=== PATIENT | female | born 1960 | race Caucasian/White ===

== ENCOUNTER → 2016-07-28 | Outpatient (CLI) | payer OTHER ==
--- NOTE | 2016-07-28 16:01 | RAD ---
Bilateral lower extremity venous ultrasound, 07/28/2016 History: Bilateral leg swelling Duplex evaluation of the deep veins in the lower extremities was performed including grayscale, color-flow and spectral Doppler analysis. The femoral and popliteal veins demonstrate normal compressibility and normal responses to distal augmentation maneuvers. Color imaging of those vessels shows no evidence of intraluminal clot. The visualized deep veins in both calves are patent. IMPRESSION: There is no sonographic evidence of deep vein thrombosis in either lower extremity.
== END | disposition home or self-care (01) ==
LOC: US 14:15
PROVIDERS: ATTEND Physician Assistant Medical
DX: M79.89 Other specified soft tissue disorders (principal)
CPT/HCPCS: 93970

== ENCOUNTER → 2016-09-07 | Outpatient (CLI) | payer OTHER ==
--- NOTE | 2016-09-07 16:59 | CARD ---
APPROVED REPORT EXAM: Two-dimensional and M-mode echocardiogram with Doppler and color Doppler. Other Information Quality : Average Rhythm : NSR INDICATION Murmur 2D DIMENSIONS RVDd3.0 (2.9-3.5cm)Left Atrium(2D)3.7 (1.6-4.0cm) IVSd1.4 (0.7-1.1cm)Aortic Root(2D)3.0 (2.0-3.7cm) LVDd5.2 (3.9-5.9cm)LVOT Diameter2.3 (1.8-2.4cm) PWd1.4 (0.7-1.1cm)LVDs3.6 (2.5-4.0cm) FS (%) 30.8 %SV75.3 ml LVEF(%)58.0 (>50%) Aortic Valve AoV Peak Neno.189.6cm/sAoV VTI47.7cm AO Peak GR.14.4mmHgLVOT Peak Neno.143.6cm/s LVOT VTI 30.72cmAO Mean GR.9mmHg SMITA (VMAX)3.94nk5OVK (VTI)2.57cm2 Mitral Valve MV E Iotpwvca285.5cm/sMV DECEL TRUQ741on MV A Qfffqqxz17.9cm/sE/A Ratio1.6 MV A [id number] Tricuspid Valve TR P. Kwxvydmk735sw/sRAP DFQYJOIZ3lqBq TR Peak Gr.58acMpFHWM52szXi LEFT VENTRICLE The left ventricle is normal size. There is mild concentric left ventricular hypertrophy. Left ventri joanna systolic function is normal. The Ejection Fraction is 55-60%. There is normal LV segmental wall m otion. The left ventricular diastolic function and filling is normal for age. There is no ventricular septal defect visualized. RIGHT VENTRICLE The right ventricle is normal size. The right ventricular systolic function is normal. ATRIA The left atrium size is normal. The right atrium size is normal. The interatrial septum is intact wit h no evidence for an atrial septal defect or patent foramen ovale as noted on 2-D or Doppler imaging. AORTIC VALVE The aortic valve is mildly calcified. The aortic valve is trileaflet. Doppler and Color Flow revealed no significant aortic regurgitation. There is no significant aortic valvular stenosis. MITRAL VALVE Mitral annular calcification is borderline. There is no mitral valve stenosis. Doppler and Color Flow revealed trace to mild mitral regurgitation. TRICUSPID VALVE The tricuspid valve is normal in structure and function. Doppler and Color Flow revealed trace tricus pid regurgitation. The PA pressure was estimated at 26 mmHg. There is no tricuspid valve stenosis. PULMONIC VALVE The pulmonic valve is not well visualized. Doppler and Color Flow revealed no pulmonic valvular regur gitation. There is no pulmonic valvular stenosis. GREAT VESSELS The aortic root is normal in size. Normal pulmonary venous flow (Doppler). The IVC is normal in size and collapses >50% with inspiration. PERICARDIAL EFFUSION There is no evidence of significant pericardial effusion. Critical Notification Critical Value: No <Conclusion> The left ventricle is normal size. Left ventricle systolic function is normal. The Ejection Fraction is 55-60%. There is mild concentric left ventricular hypertrophy. There is no significant aortic valvular stenosis. Doppler and Color Flow revealed no significant aortic regurgitation. Doppler and Color Flow revealed trace to mild mitral regurgitation. Doppler and Color Flow revealed trace tricuspid regurgitation. The PA pressure was estimated at 26 mmHg.
== END | disposition home or self-care (01) ==
LOC: ECHO 11:00
PROVIDERS: ATTEND Physician Assistant Medical
DX: I08.3 Combined rheumatic disorders of mitral, aortic and tricuspid valves (principal); I51.7 Cardiomegaly; R01.1 Cardiac murmur, unspecified
CPT/HCPCS: 93306

== ENCOUNTER → 2016-10-11 | Outpatient (CLI) | payer OTHER ==
--- NOTE | 2016-10-11 12:18 | RAD ---
Indication: Left foot pain laterally. Time of exam 12:10 PM 3 views of the left foot were obtained. The metatarsals are intact. The phalanges appear intact. The midfoot is unremarkable. Hindfoot demonstrates a large plantar calcaneal spur. No fractures are seen. Impression: No acute bony abnormality is detected.
== END | disposition home or self-care (01) ==
LOC: DXRADRC 11:57
PROVIDERS: ATTEND Nurse Practitioner Family
DX: M77.32 Calcaneal spur, left foot (principal); M79.89 Other specified soft tissue disorders; D75.82 Heparin induced thrombocytopenia (HIT)
CPT/HCPCS: 73630

== ENCOUNTER → 2017-08-30 | Outpatient (CLI) | payer OTHER ==
--- NOTE | 2017-08-30 14:18 | RAD ---
Right humerus, 2 views, 08/30/2017: HISTORY: Pain, injury No fracture or bony abnormality is detected. The soft tissues are unremarkable. Moderate degenerative change is present at the AC joint. IMPRESSION: No acute right humeral abnormality is detected. Right forearm, 2 views, 08/30/2017: No fracture is identified. The soft tissues are unremarkable. IMPRESSION: No acute abnormality is detected. Electronically signed by: Eddi Mane MD (08/30/2017 2:15 PM) [facility]
--- NOTE | 2017-08-30 14:18 | RAD ---
Right humerus, 2 views, 08/30/2017: HISTORY: Pain, injury No fracture or bony abnormality is detected. The soft tissues are unremarkable. Moderate degenerative change is present at the AC joint. IMPRESSION: No acute right humeral abnormality is detected. Right forearm, 2 views, 08/30/2017: No fracture is identified. The soft tissues are unremarkable. IMPRESSION: No acute abnormality is detected. Electronically signed by: Eddi Mane MD (08/30/2017 2:15 PM) [facility]
== END | disposition home or self-care (01) ==
LOC: DXRAD 13:23
PROVIDERS: ATTEND Nurse Practitioner Family
DX: M79.631 Pain in right forearm (principal)
CPT/HCPCS: 73060; 73090

== ENCOUNTER → 2018-04-12 | Outpatient (CLI) | payer OTHER ==
--- NOTE | 2018-04-12 15:39 | RAD ---
Cervical spine radiograph 04/12/2018 INDICATION: Cervical spine pain. No history of injury or trauma. COMPARISON: None available TECHNIQUE: AP, lateral and odontoid views of the cervical spine are provided. FINDINGS: Cervical spine is visualized from the craniocervical junction through the cervicothoracic junction. There is moderate disc height loss at C5-C6, C6-C7 and C7-T1. There is endplate sclerosis at these levels with endplate remodeling and moderate anterior marginal osteophytosis. There is no prevertebral soft tissue swelling. There is moderate multilevel facet arthropathy in the lower cervical spine. Posterior osteophytes are identified at C5-C6, C6-C7 and C7-T1 resulting in at least mild osseous spinal canal stenosis. Moderate uncovertebral joint disease is noted. Dens is intact. Lateral masses of C1 articulate appropriately with the C2 vertebral body. IMPRESSION: Moderate cervical spondylosis, as described in detail above. No acute fracture or malalignment. Electronically signed by: Kalli Washington MD (04/12/2018 3:35 PM) [id number]
== END | disposition home or self-care (01) ==
LOC: PMG 14:36
PROVIDERS: ATTEND Registered Nurse
DX: M47.812 Spondylosis without myelopathy or radiculopathy, cervical region (principal); M25.78 Osteophyte, vertebrae
CPT/HCPCS: 72040